=== PATIENT | female | born 1985 | race Caucasian/White ===

== ENCOUNTER 2022-03-20 16:11 | Emergency (ER) | payer BC, OTHER ==
[2022-03-20] MEDS ORDERED: SODIUM CHLORIDE 0.9% 1,000 ML IV STA (16:26)
[2022-03-20] MEDS ORDERED: KETOROLAC 30 MG/ML VIAL IVP STA (16:26)
[2022-03-20] MEDS ORDERED: LORazepam 2 MG/ML VIAL IVP STA (16:26)
[2022-03-20] MEDS ORDERED: HYDROmorphone 1 MG/ML CARPUJECT IVP STA (16:36)
--- NOTE | 2022-03-20 16:44 | ED Physician Documentation ---
History of Present Illness - Stated complaint Stated Complaint: SYNCOPE/FALL - Chief complaint Chief Complaint: Neuro - History obtained from History obtained from: Patient - Additonal information Additional information: The patient is brought to the emergency department by EMS for chief complaint of low back pain and difficulty breathing. The patient has had aches, chills, cough, and a sense of shortness of breath for the last few days. She states that she feels as though she just cannot get a deep breath and that everything feels. The patient was going to sit down in a chair today when she suddenly began to feel lightheaded and dizzy and lost consciousness. She fell to the ground, hitting her head, before her significant other could not catch her. The patient denies any specific injuries but does note that she has a bad headache. She also states she is having a flareup of her chronic low back pain since the fall. The patient has a history of 3 lumbar surgeries and has recurrent e pisodes of low back pain from this. She denies any nausea or vomiting. She has a pain that goes under both breasts. No abdominal pain. She states she has some neck pain at the base of her head. The patient has no recent history of edema in 1 leg or the other. She has no DVT history, though she does note a superficial clot after an IV attempt in her arm. The patient states that she has a history of tachycardia and high blood pressure episodes, for which she has been evaluated by cardiology. She states nobody has been able to figure out why she gets these episodes. Review of Systems Ten Systems: 10 systems reviewed and negative Constitutional: reports: Chills, Myalgias Eyes: reports: Reviewed and negative Ears: reports: Reviewed and negative Nose: reports: Reviewed and negative Throat: reports: Reviewed and negative Cardiac: reports: Chest pain / pressure (Under her breasts bilaterally) Respiratory: reports: Dyspnea, Cough GI: reports: Reviewed and negative : reports: Reviewed and negative Skin: reports: Reviewed and negative Musculoskeletal: reports: Neck pain, Back pain Neurologic: reports: Reviewed and negative Psychiatric: reports: Reviewed and negative Endocrine: reports: Reviewed and negative Immunocompromised: reports: Reviewed and negative PD PAST MEDICAL HISTORY - Present Medications Home Medications: Ambulatory Orders Medication Instructions Recorded Confirmed Buspirone HCl 30 mg PO BID 03/20/22 03/20/22 Cyclobenzaprine [Flexeril] 10 mg PO BID 03/20/22 03/20/22 HYDROcod/ACETAM 5/325 [[place] 5/325] 1 - 2 tablet PO Q6H PRN #14 tablet 03/20/22 Methylphenidate HCl 36 mg PO DAILY 03/20/22 03/20/22 [Methylphenidate ER] Metoprolol Tartrate [Lopressor] 12.5 mg PO DAILY PRN 03/20/22 03/20/22 Promethazine [Phenergan] 12.5 mg PO TID 03/20/22 03/20/22 Vilazodone HCl 10 mg PO DAILY 03/20/22 03/20/22 Vilazodone HCl [Viibryd] 40 mg PO DAILY 03/20/22 03/20/22 clonazePAM [Clonazepam] 1 mg PO BID PRN 03/20/22 03/20/22 metFORMIN [Glucophage] 500 mg PO BIDWM 03/20/22 03/20/22 terbinafine HCL [Terbinafine HCl] 250 mg PO DAILY 03/20/22 03/20/22 - Allergies Allergies/Adverse Reactions: Allergies Allergy/AdvReac Type Severity Reaction Status Date / Time codeine Allergy Unknown Verified 03/20/22 16:19 meperidine [From Demerol] Allergy Unknown Verified 03/20/22 16:19 metoclopramide [From Reglan] Allergy Unknown Verified 03/20/22 16:19 ondansetron [From Zofran] Allergy Unknown Verified 03/20/22 16:19 piperacillin [From Zosyn] Allergy Unknown Verified 03/20/22 16:19 Sulfa (Sulfonamide Allergy Unknown Verified 03/20/22 16:19 Antibiotics) tazobactam [From Zosyn] Allergy Unknown Verified 03/20/22 16:19 PD ED PE NORMAL - Vitals Vital signs reviewed: Yes - General General: Alert and oriented X 3, Well developed/nourished, Other (Tearful, anxious appearing patient otherwise in no apparent distress.) - HEENT HEENT: Atraumatic, PERRL, EOMI, Moist mucous membranes - Neck Neck: Supple, no meningeal sign, No bony TTP - Cardiac Cardiac: No murmur, Strong equal pulses, Other (Tachycardic rate, regular rhythm) - Respiratory Respiratory: No respiratory distress, Clear bilaterally - Abdomen Abdomen: Soft, Non tender, Non distended - Derm Derm: Normal color, Warm and dry, No rash - Extremities Extremities: No deformity, No edema - Neuro Neuro: Alert and oriented X 3, executive secretary 2-12 intact, Normal speech - Psych Psych: Normal mood, Normal affect Results - Vitals Vitals: Vital Signs - 24 hr 03/20/22 03/20/22 03/20/22 16:19 16:52 17:22 Temperature 36.6 C Heart Rate 122 H 100 87 Respiratory 20 15 12 Rate Blood Pressure 163/124 H 150/97 H 118/82 H O2 Saturation 98 100 100 03/20/22 17:30 Temperature Heart Rate 88 Respiratory 12 Rate Blood Pressure 140/94 H O2 Saturation 98 Oxygen O2 Source Room air - Labs Labs: Laboratory Tests 03/20/22 03/20/22 03/20/22 16:47 16:47 16:47 WBC 13.7 H RBC 4.57 Hgb 13.0 Hct 39.8 MCV 87.1 MCH 28.4 MCHC 32.7 RDW 13.2 Plt Count 305 MPV 8.9 Neut # (Auto) 9.6 H Lymph # (Auto) 3.1 [place] # (Auto) 0.7 Eos # (Auto) 0.2 Baso # (Auto) 0.1 Absolute Nucleated RBC 0.00 Nucleated RBC % 0.0 D-Dimer < 200.0 L Sodium 139 Potassium 4.0 Chloride 102 Carbon Dioxide 27 Anion Gap 10.0 BUN 16 Creatinine 0.5 Estimated GFR (MDRD) 140 Glucose 91 Calcium 9.4 Total Bilirubin 0.2 AST 26 ALT 44 Alkaline Phosphatase 68 Total Protein 7.3 Albumin 4.0 Globulin 3.3 Albumin/Globulin Ratio 1.2 Lipase 34 PD MEDICAL DECISION MAKING - ED course Complexity details: reviewed results, re-evaluated patient, considered differential, d/w patient ED course: The patient was worked up with labs, EKG, and CT scans of the head and neck initially. She was treated symptomatically with IV fluids and analgesia. Her work-up was unremarkable, including a negative d-dimer. She was feeling better on re-evaluation and her tachycardia, which pt stated was normal for her, had improved. Pt was deemed stable for d/c home. She was given the usual indications for return. Departure - Departure Disposition: Home, Self Care Clinical Impression: Viral syndrome Syncope Qualifiers: Syncope type: unspecified Qualified Code(s): R55 - Syncope and collapse Low back pain Qualifiers: Chronicity: chronic Back pain laterality: midline Sciatica presence: without sciatica Qualified Code(s): M54.50 - Low back pain, unspecified Condition: Stable Instructions: ED Low Back Pain Injury, ED Fainting Unkn Cause, ED Viral Syndrome Prescriptions: HYDROcod/ACETAM 5/325 [[place] 5/325] 1 - 2 tablet PO Q6H PRN #14 tablet PRN Reason: Pain Comments: All of your tests look very good. There is no evidence of serious injury at this time. You may take the medication that has been prescribed for your pain, as needed. The prescription for this has been electronically transmitted to the [facility] pharmacy in [place], your pharmacy of choice on record. Please follow-up with your primary doctor for further concerns. Discharge Date/Time: 03/20/22 18:04
[2022-03-20 16:54] LABS: BASOPHILS # (AUTO) 0.1 10^3/uL (0.0-0.1); BASOPHILS % (AUTO) 0.4 %; EOSINOPHILS # (AUTO) 0.2 10^3/uL (0.0-0.7); EOSINOPHILS % (AUTO) 1.5 %; HCT - HEMATOCRIT 39.8 % (37.0-47.0); LYMPHOCYTES # (AUTO) 3.1 10^3/uL (1.5-3.5); LYMPHOCYTES % (AUTO) 22.4 %; MEAN CORPUSCULAR HEMOGLOBIN 28.4 pg (27.0-31.0); MEAN CORPUSCULAR HGB CONC 32.7 g/dL (32.0-36.0); MEAN CORPUSCULAR VOLUME 87.1 fL (81.0-99.0); MEAN PLATELET VOLUME 8.9 fL (7.9-10.8); MONOCYTES # (AUTO) 0.7 10^3/uL (0.0-1.0); MONOCYTES % (AUTO) 5.2 %; NEUTROPHILS # (AUTO) 9.6 10^3/uL (1.5-6.6); NEUTROPHILS % (AUTO) 70.1 %; PLT - PLATELET COUNT 305 10^3/uL (130-450); RED BLOOD COUNT 4.57 10^6/uL (4.20-5.40); RED CELL DISTRIBUTION WIDTH 13.2 % (12.0-15.0); WHITE BLOOD COUNT 13.7 x10^3/uL (4.8-10.8)
[2022-03-20] MEDS ORDERED: DROPERIDOL 5 MG/2 ML VIAL IVP STA (16:57)
[2022-03-20 17:06] LABS: ALBUMIN/GLOBULIN RATIO 1.2 (1.0-2.2); BILIRUBIN,TOTAL 0.2 mg/dL (0.2-1.0); CALCIUM 9.4 mg/dL (8.5-10.3); CREATININE 0.5 mg/dL (0.4-1.0); TOTAL PROTEIN 7.3 g/dL (6.7-8.2)
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
--- NOTE | 2022-03-20 17:32 | CT Report ---
PROCEDURE: CERVICAL SPINE WO INDICATIONS: fall/pain at base of head TECHNIQUE: Noncontrast 3 mm thick sections acquired from the skull base to the T4 level. Sagittal and coronal r eformats were then constructed. For radiation dose reduction, the following was used: automated exp osure control, adjustment of mA and/or kV according to patient size. COMPARISON: None. FINDINGS: Image quality: Excellent. Bones: No fractures or dislocations. Visualized superior ribs are intact. Soft tissues: Prevertebral soft tissues are normal in thickness. No paravertebral hematomas. No ap ical pneumothoraces. IMPRESSION: No visualized fracture. Reviewed by: Betty Velarde MD on 03/20/2022 5:30 PM PST Approved by: Betty Velarde MD on 03/20/2022 5:30 PM [facility] Station ID: [id number]
[2022-03-20 17:42] VITALS: BP 140/94
== END 2022-03-20 18:04 | disposition home or self-care (01) ==
LOC: ED 16:11
DX: B34.9 Viral infection, unspecified (principal); R55 Syncope and collapse; M54.50 Low back pain, unspecified
CPT/HCPCS: 36415; 70450; 72125; 80053; 83690; 85025; 85379; 93005; 96361; 96374; 96375; 99284; 99285; J1170; J2060

== ENCOUNTER → 2022-03-20 | Outpatient (CLI) | payer BC, OTHER | END | disposition critical access hospital (66) | LOC: EMS 15:46 | DX: R55 Syncope and collapse (principal); R42 Dizziness and giddiness; M54.50 Low back pain, unspecified; R09.89 Other specified symptoms and signs involving the circulatory and respiratory systems | CPT/HCPCS: A0425; A0427 ==

== ENCOUNTER 2022-04-18 15:44 | Outpatient (CLI) | payer BC ==
--- NOTE | 2022-04-18 17:26 | XRAY Report ---
PROCEDURE: Hip w/Pelvis 1V LT INDICATIONS: L HIP PX TECHNIQUE: AP pelvis with lateral view(s) of the left hip(s). COMPARISON: None. FINDINGS: Bones: No fractures or dislocations. Surgical changes of L4-5 posterior fusion and disc spacer place ment. There is S1 screw. Pelvic ring appears intact. No suspicious bony lesions. Soft tissues: The visualized bowel gas pattern is normal. No suspicious soft tissue calcifications. IMPRESSION: 1. Intact left hip and pelvis. Reviewed by: Jenniffer Cross MD on 04/18/2022 5:24 PM PST Approved by: Jenniffer Cross MD on 04/18/2022 5:24 PM PST Station ID: [id number]
--- NOTE | 2022-04-18 17:31 | XRAY Report ---
PROCEDURE: Lumbar Spine 2 View INDICATIONS: LOW BACK PX TECHNIQUE: 3 views of the lumbar spine were acquired. COMPARISON: None. FINDINGS: Bones: 5 [id number] vertebrae are present. There is prior fusion of lower lumbar spine at L4-S1 levels with surgical hardware and intervertebral spacer in place. No acute compression fracture or s ignificant spondylolisthesis. No gross hardware loosening or failure. No suspicious bony lesions. Soft tissues: Overlying bowel gas pattern is normal. No suspicious soft tissue calcifications. IMPRESSION: Post fusion changes in lower lumbar spine as above. Anatomic lumbar spine alignment. No acute compression fracture or significant spondylolisthesis. No evidence of gross hardware loosening or failure. Reviewed by: Taurus Machuca MD on 04/18/2022 5:29 PM PST Approved by: Taurus Machuca MD on 04/18/2022 5:29 PM PST Station ID: [id number]
== END 2022-04-18 15:45 | disposition home or self-care (01) ==
LOC: DI.N 15:44
PROVIDERS: ATTEND Physician Assistant
DX: M54.50 Low back pain, unspecified (principal); M25.552 Pain in left hip; Z98.1 Arthrodesis status

== ENCOUNTER 2022-04-24 13:47 | Outpatient (CLI) | payer BC | END 2022-04-24 13:48 | disposition critical access hospital (66) | LOC: EMS 13:47 | DX: Z04.1 Encounter for examination and observation following transport accident (principal); M54.50 Low back pain, unspecified | CPT/HCPCS: A0425; A0429 ==

== ENCOUNTER 2022-04-24 14:08 | Emergency (ER) | payer OTHER, BC ==
[2022-04-24] MEDS ORDERED: HYDROmorphone 1 MG/ML CARPUJECT IVP STA (14:22)
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
[2022-04-24] MEDS ORDERED: HYDROmorphone 1 MG/ML CARPUJECT IM STA (14:52)
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
[2022-04-24] MEDS ORDERED: oxyCODONE 5 MG TABLET PO STA (16:06)
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
[2022-04-24] MEDS ORDERED: HYDROmorphone 2 MG TABLET PO STA (17:23)
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
[2022-04-24 17:52] VITALS: BP 130/80
== END 2022-04-24 17:53 | disposition home or self-care (01) ==
LOC: EDUNIT# → ED 14:08
DX: M54.50 Low back pain, unspecified (principal); G89.29 Other chronic pain; V49.9XXA Car occupant (driver) (passenger) injured in unspecified traffic accident, initial encounter; F17.200 Nicotine dependence, unspecified, uncomplicated
CPT/HCPCS: 70450; 72125; 72128; 72131; 96372; 99284; A9270; J1170

== ENCOUNTER 2022-05-28 13:22 | Outpatient (CLI) | payer BC | END 2022-05-28 13:23 | disposition home or self-care (01) | LOC: RT 13:22 | PROVIDERS: ATTEND Student in an Organized Health Care Education/Training Program | DX: R06.02 Shortness of breath (principal); R06.2 Wheezing | CPT/HCPCS: 94010 ==

== ENCOUNTER 2022-09-12 12:33 | Outpatient (CLI) | payer BC | END 2022-09-12 12:34 | disposition home or self-care (01) | LOC: DI.N 12:33 | PROVIDERS: ATTEND Nurse Practitioner Obstetrics & Gynecology | DX: Z53.9 Procedure and treatment not carried out, unspecified reason (principal) ==

== ENCOUNTER 2023-04-02 13:17 | Outpatient (CLI) | payer BC ==
[2023-04-02 17:56] LABS: MEAN CORPUSCULAR HEMOGLOBIN 28.9 pg (27.0-31.0); MEAN CORPUSCULAR HGB CONC 32.5 g/dL (32.0-36.0); MEAN CORPUSCULAR VOLUME 88.9 fL (81.0-99.0); MEAN PLATELET VOLUME 9.9 fL (7.9-10.8); RED BLOOD COUNT 4.5 10^6/uL (4.20-5.40); RED CELL DISTRIBUTION WIDTH 13.1 % (12.0-15.0); WHITE BLOOD COUNT 7.8 x10^3/uL (4.8-10.8)
[2023-04-02 18:51] LABS: THYROID STIMULATING HORMONE 0.9 uIU/mL (0.34-5.60)
[2023-04-02 18:57] LABS: PROLACTIN 24.35 ng/mL
[2023-04-02 20:58] LABS: ESTIMATED AVERAGE GLUCOSE 108 mg/dL (70-100); HEMOGLOBIN A1c% 5.4 % (4.27-6.07)
== END 2023-04-02 13:18 | disposition home or self-care (01) ==
LOC: LAB.N 13:17
PROVIDERS: ATTEND Obstetrics & Gynecology
DX: N93.9 Abnormal uterine and vaginal bleeding, unspecified (principal)
CPT/HCPCS: 36415; 82626; 82670; 83001; 83002; 83036; 84143; 84146; 84403; 84436; 84439; 84443; 84480; 84481; 85027

== ENCOUNTER 2023-04-25 19:41 | Outpatient (CLI) | payer BC ==
--- NOTE | 2023-04-26 11:35 | Ultrasound Report ---
PROCEDURE: Pelvic w/Transvaginal INDICATIONS: AUB TECHNIQUE: Real-time scanning was performed of the pelvic organs, with image documentation. Additional endovagi nal scanning was necessary due to incomplete visualization of the adnexal and endometrial structures by transabdominal scanning. COMPARISON: None. FINDINGS: Uterus: Uterus is anteverted and normal in size at 8.0 x 3.5 x 4.7 cm. The myometrium is slightly h eterogeneous but without dominant mass.. The endometrium measures 8.6 mm in combined thickness. Mil d myometrial thinning at the scar. There is a trace amount of complex fluid in the endocerv ix. The cervix is otherwise normal in morphology. Normal vascularity in the uterus. Ovaries: The right ovary measures 3.0 x 2.6 x 3.2 cm, with a calculated ovarian volume of 13.1 cc. The left ovary measures 3.1 x 2.0 x 2.8 cm, with a calculated ovarian volume of 9.1 cc. The ovaries have a normal sonographic appearance. Less than 12 follicles can be seen in each ovary. No adnexal masses are seen. No cystic lesions measuring greater than 3 cm. Other: No pathologic free abdominal or pelvic fluid. IMPRESSION: 1. Slightly heterogeneous uterine myometrium is nonspecific. No other findings to indicate adenomyosi s. Clinical correlation recommended. 2. Normal ovaries without a polycystic appearance. Reviewed by: Jenniffer Cross MD on 04/26/2023 11:33 AM PST Approved by: Jenniffer Cross MD on 04/26/2023 11:33 AM PST Station ID: [id number]
== END 2023-04-25 19:42 | disposition home or self-care (01) ==
LOC: DI 19:41
PROVIDERS: ATTEND Obstetrics & Gynecology
DX: N93.9 Abnormal uterine and vaginal bleeding, unspecified (principal); R10.2 Pelvic and perineal pain

== ENCOUNTER 2023-05-15 10:28 | Outpatient (CLI) | payer BC | END 2023-05-15 10:29 | disposition home or self-care (01) | LOC: LAB 10:28 | PROVIDERS: ATTEND Obstetrics & Gynecology | DX: R10.2 Pelvic and perineal pain (principal); N93.9 Abnormal uterine and vaginal bleeding, unspecified; G89.29 Other chronic pain | CPT/HCPCS: 36415; 83498 ==

== ENCOUNTER 2023-08-12 13:57 | Outpatient (CLI) | payer BC ==
--- NOTE | 2023-08-12 16:12 | XRAY Report ---
PROCEDURE: Tib/Fib RT INDICATIONS: PAIN IN RIGHT LOWER LEG TECHNIQUE: 2 views of the tibia and fibula were acquired. COMPARISON: None. FINDINGS: Bones: No displaced fracture of the tibial shaft or fibular shaft. Soft tissues: No suspicious calcifications. IMPRESSION: No acute radiographic abnormality. If there is high concern for further derangement, consider MRI shaina luation. Reviewed by: Jasper Saba MD on 08/12/2023 4:11 PM PDT Approved by: Jasper Saba MD on 08/12/2023 4:11 PM PDT Station ID: [id number]
--- NOTE | 2023-08-12 16:14 | XRAY Report ---
PROCEDURE: Ankle 3+V RT INDICATIONS: PAIN IN RIGHT LOWER LEG TECHNIQUE: 3 views of the ankle were acquired. COMPARISON: None. FINDINGS: Bones: No displaced fracture or dislocation. Plantar calcaneal enthesopathy is present. Soft tissues: No suspicious calcifications. IMPRESSION: No acute radiographic abnormality. If there is high concern for further derangement, consider MRI shaina luation. Plantar and calcaneal enthesopathy. Reviewed by: Jasper Saba MD on 08/12/2023 4:12 PM PDT Approved by: Jasper Saba MD on 08/12/2023 4:12 PM PDT Station ID: [id number]
== END 2023-08-12 13:58 | disposition home or self-care (01) ==
LOC: DI.N 13:57
PROVIDERS: ATTEND Physician Assistant Medical
DX: M79.661 Pain in right lower leg (principal); M77.51 Other enthesopathy of right foot and ankle

== ENCOUNTER 2023-08-30 08:46 | Outpatient (CLI) | payer BC ==
--- NOTE | 2023-08-30 16:51 | XRAY Report ---
PROCEDURE: Chest 2V INDICATIONS: COUGH TECHNIQUE: 2 views of the chest were acquired. COMPARISON: None. FINDINGS: Surgical changes and devices: Cholecystectomy clips. Lungs and pleura: Minimal appearance of bibasilar coarsening. Mediastinum: Mediastinal contours appear normal. Heart size is normal. Bones and chest wall: No suspicious bony lesions. Overlying soft tissues appear unremarkable. IMPRESSION: Minimal bibasilar coarsening possibly environmental marketing representative of dependent change versus developing pneumonia/ atelectasis. Reviewed by: Betty Velarde MD on 08/30/2023 4:49 PM PDT Approved by: Betty Velarde MD on 08/30/2023 4:49 PM PDT Station ID: [id number]
== END 2023-08-30 08:47 | disposition home or self-care (01) ==
LOC: DI 08:46
PROVIDERS: ATTEND Internal Medicine
DX: R05.9 Cough, unspecified (principal)

== ENCOUNTER 2023-09-08 12:37 | Outpatient (CLI) | payer BC | END 2023-09-08 23:59 | disposition short-term general hospital (02) | LOC: EMS 12:37 | DX: R55 Syncope and collapse (principal); R07.9 Chest pain, unspecified; R06.02 Shortness of breath; M54.9 Dorsalgia, unspecified | CPT/HCPCS: A0425; A0427 ==

== ENCOUNTER 2023-11-18 16:37 | Outpatient (CLI) | payer BC ==
[2023-11-18 17:04] LABS: BASOPHILS % (AUTO) 0.5 %; EOSINOPHILS % (AUTO) 1.5 %; HGB - HEMOGLOBIN 13.1 g/dL (12.0-16.0); LYMPHOCYTES % (AUTO) 43.7 %; MEAN CORPUSCULAR HEMOGLOBIN 28.5 pg (27.0-31.0); MEAN CORPUSCULAR HGB CONC 32.8 g/dL (32.0-36.0); MEAN PLATELET VOLUME 8.8 fL (7.9-10.8); MONOCYTES % (AUTO) 6.6 %; NEUTROPHILS % (AUTO) 47.3 %; PLT - PLATELET COUNT 326 10^3/uL (130-450); RED CELL DISTRIBUTION WIDTH 13.3 % (12.0-15.0); WHITE BLOOD COUNT 9.6 x10^3/uL (4.8-10.8)
[2023-11-18 17:08] LABS: BAND NEUTROPHILS % (MANUAL) 0 %
[2023-11-18 18:11] LABS: ABNORMAL LYMPHS % (MANUAL) 4 %; DIFFERENTIAL COMMENT MANUAL DIFFERENTIAL; EOSINOPHILS # (MANUAL) 0.3 10^3/uL (0-0.7); LYMPHOCYTES # (MANUAL) 5.1 10^3/uL (1.5-3.5); LYMPHOCYTES % (MANUAL) 49 %; MONOCYTES # (MANUAL) 0.5 10^3/uL (0.0-1.0); NEUTROPHILS # (MANUAL) 3.7 10^3/uL (1.5-6.6); PLATELET ESTIMATE, MANUAL NORMAL (130-450,000) (NORMAL); PLATELET MORPHOLOGY NORMAL APPEARANCE (NORMAL); RBC MORPHOLOGY (MULTIPLE) NORMAL APPEARANCE (NORMAL); WBC MORPHOLOGY (MULTIPLE) 1+ SMUDGE CELLS (NORMAL)
== END 2023-11-18 16:38 | disposition home or self-care (01) ==
LOC: LAB 16:37
PROVIDERS: ATTEND Nurse Practitioner
DX: J18.9 Pneumonia, unspecified organism (principal)
CPT/HCPCS: 36415; 82728; 85025

== ENCOUNTER 2023-11-18 16:44 | Outpatient (CLI) | payer BC ==
--- NOTE | 2023-11-19 18:21 | XRAY Report ---
PROCEDURE: Chest 2V INDICATIONS: PHUEMONIA TECHNIQUE: 2 views of the chest were acquired. COMPARISON: 08/30/2023. FINDINGS: Surgical changes and devices: None. Lungs and pleura: No pleural effusions or pneumothorax. Ill-defined small airspace opacity in right midlung field is seen. Subtle opacity in right infrahilar region is also seen. Left lung is clear. Mediastinum: Mediastinal contours appear normal. Heart size is normal. Bones and chest wall: No suspicious bony lesions. Overlying soft tissues appear unremarkable. IMPRESSION: Finding is concerning for small scattered right lower lobe infiltrates versus atelectasis. Left lung is clear. No pleural effusion or pneumothorax. Reviewed by: Taurus Machuca MD on 11/19/2023 6:20 PM PDT Approved by: Taurus Machuca MD on 11/19/2023 6:20 PM PDT Station ID: [id number]
== END 2023-11-18 16:45 | disposition home or self-care (01) ==
LOC: DI 16:44
PROVIDERS: ATTEND Nurse Practitioner
DX: J18.9 Pneumonia, unspecified organism (principal)
CPT/HCPCS: 36415; 82728; 85025

== ENCOUNTER 2023-12-02 16:39 | Outpatient (CLI) | payer BC ==
--- NOTE | 2023-12-03 23:24 | CT Report ---
PROCEDURE: Chest WO INDICATIONS: LUNG INFILTRATES TECHNIQUE: A CT scan of the chest was performed. Intravenous contrast media was not administered. Images were re corded and evaluated at appropriate window settings. Reformats: axial MIP of the chest, coronal and s agittal. For radiation dose reduction, the following was used: automated exposure control, adjustment of mA and/or kV according to patient size. COMPARISON: Chest x-ray 11/18/2023, 08/30/2023 FINDINGS: Image quality: Diagnostic. Chest wall and lower neck: No thyroid nodule which requires sonographic follow up. No axillary or sup raclavicular adenopathy by size. No suspicious chest wall mass. Lungs and pleura: Solid spiculated subpleural nodular density is seen in the right upper lobe along t he right posterior minor fissure measuring roughly 1.0 x 0.9 cm, immediately adjacent bronchovascular structures. There is adjacent thickening of the lateral minor and posterior major fissure. Minimal a djacent groundglass opacity. Minor bilateral bronchial wall thickening. No bronchiectasis. No pleural effusions. No pneumothorax. No other consolidations, interstitial reticulation, nodules, or masses. Mediastinum: Heart size is normal. No pericardial effusion. No large vessel abnormality. No mediastin al adenopathy by size criteria. No anterior or posterior mediastinal mass. Normal esophagus without hiatal hernia Bones: No aggressive osseous abnormality. Upper Abdomen: Prior cholecystectomy. Visible portions of the upper abdomen are otherwise normal. IMPRESSION: No evidence of acute pneumonia. Resolution of findings seen on chest x-ray from 08/30/2023. Fissural thickening and subpleural nodularity, similar to chest x-ray 11/18/2023. This was not present previously. Given rapid development, this is most likely infectious or postinflammatory, potentially a reactive juxta fissural lymph node. However given its spiculated nature, short interval follow-up with repeat CT in 1-3 months is recommended. Minor bilateral bronchial wall thickening suggests chronic or resolving bronchitis. Reviewed by: Jenniffer Cross MD on 12/03/2023 11:22 PM PDT Approved by: Jenniffer Cross MD on 12/03/2023 11:22 PM PDT Station ID: [id number]
== END 2023-12-02 16:40 | disposition home or self-care (01) ==
LOC: DI 16:39
PROVIDERS: ATTEND Nurse Practitioner
DX: J98.11 Atelectasis (principal); R91.8 Other nonspecific abnormal finding of lung field; Z71.6 Tobacco abuse counseling

== ENCOUNTER 2023-12-22 15:35 | Outpatient (CLI) | payer BC ==
--- NOTE | 2023-12-23 09:27 | XRAY Report ---
PROCEDURE: Hips w/Pelvis 3-4V BL INDICATIONS: BILATERAL HIP PAIN TECHNIQUE: Single view of the pelvis. COMPARISON: 04/18/2022 FINDINGS: Status post L4-L5 posterior spinal fusion with vertebral disc spacer. S1 screw is again visualized. P elvic ring appears intact. No suspicious bony lesions. No fractures or dislocations. IMPRESSION: No acute radiographic abnormality. Reviewed by: Diane Mendez MD, PhD on 12/23/2023 9:25 AM PDT Approved by: Diane Mendez MD, PhD on 12/23/2023 9:25 AM PDT Station ID: [id number]
== END 2023-12-22 15:36 | disposition home or self-care (01) ==
LOC: DI 15:35
PROVIDERS: ATTEND Physical Medicine & Rehabilitation
DX: M25.552 Pain in left hip (principal); G89.29 Other chronic pain; M53.3 Sacrococcygeal disorders, not elsewhere classified; Z98.1 Arthrodesis status